=== PATIENT | female | born 1970 | race Caucasian/White ===

== ENCOUNTER 2019-02-15 14:37 | Emergency (ER) | payer OTHER ==
[2019-02-15] MEDS ORDERED: KETOROLAC 30 MG/ML 1 ML VIAL IM STA (15:04)
--- NOTE | 2019-02-15 15:09 | ED ---
General Adult HPI - General Chief complaint: Extremity Injury, Lower Stated complaint: R Foot Injury Time Seen by Provider: 02/15/19 14:53 Source: patient Mode of arrival: ambulatory Limitations: no limitations - History of Present Illness Initial comments: She is a 48-year-old female presenting to the emergency department with chief complaint of right foot pain. Patient reports incident occurred 3 days ago when she slid off a bunkbed and landed on her right foot for approximately 5 feet high. Patient reports she landed flat footed. Patient reports the last 2 days she has developed swelling and ecchymosis all around the toes and the anterior aspect of the foot. Patient reports mid foot and fifth metatarsal tenderness. Patient reports limited range of motion in her toes although she still able to slightly move them. Patient reports pain with weightbearing that is alleviated at rest. Patient reports taking [id number] analgesics minimal improvement. Patient denies any numbness or tingling. Patient denies any calf or knee pain. - Related Data Allergies Allergy/AdvReac Type Severity Reaction Status Date / Time Penicillins Allergy Rash/Hives Verified 02/15/19 14:49 Review of Systems ROS Statement: Those systems with pertinent positive or pertinent negative responses have been documented in the HPI. ROS Other: All systems not noted in ROS Statement are negative. Past Medical History Past Medical History: Thyroid Disorder History of Any Multi-Drug Resistant Organisms: None Reported Past Surgical History: Back Surgery Additional Past Surgical History / Comment(s): gastric bypass Past Psychological History: Anxiety, Depression Smoking Status: Current every day smoker Past Alcohol Use History: None Reported Past Drug Use History: None Reported General Exam Limitations: no limitations General appearance: alert, in no apparent distress Head exam: Present: atraumatic, normocephalic, normal inspection Eye exam: Present: normal appearance Pupils: Present: normal accommodation ENT exam: Present: normal exam, mucous membranes moist, normal external ear exam Neck exam: Present: normal inspection, full ROM Respiratory exam: Present: normal lung sounds bilaterally Cardiovascular Exam: Present: regular rate, normal rhythm, normal heart sounds Extremities exam: Present: full ROM (Full range of motion her right foot, limited range of motion in the toes), tenderness (Midfoot and fifth metatarsal tenderness.), normal capillary refill, other (+2 dorsalis pedis and posterior tibialis bilaterally.). Absent: normal inspection (Swelling on the right foot with ecchymosis at the MTP joints), calf tenderness (Negative Homans.) Back exam: Present: normal inspection, full ROM Neurological exam: Present: alert, oriented X3 Psychiatric exam: Present: normal affect, normal mood Skin exam: Present: warm, intact, normal color Course Vital Signs 02/15/19 14:45 Temperature 97.7 F Pulse Rate 67 Respiratory 16 Rate Blood Pressure 124/79 O2 Sat by Pulse 100 Oximetry Procedures - Orthopedic Splinting/Casting Injury #1 Side: right Lower Extremity Injury Location: long leg Lower Extremity Immobilizer: posterior splint, Levi wrap, synthetic pre-padded splint Other Orthopedic Equipment: crutches Medical Decision Making - Medical Decision Making Patient is a 48-year-old female presenting to the emergency department with a chief complaint of right foot pain. Physical examination there is only mild swelling along with ecchymosis in the right foot. X-rays indicative of a fourth and fifth metatarsal shaft fracture. Patient initially declined narcotic me dication so she was given Toradol. Patient will be discharged with Tylenol 3 starter pack. Patient advised about the possible side effects of medication. Posterior splint applied. Patient given crutches. Patient advised to follow-up with an head orthopedic team physician. Strict return parameters were thoroughly discussed with patient who is understanding and agreeable. Patient vised alternate between Tylenol and ibuprofen for pain control. Case discussed physician. Disposition Clinical Impression: Fracture of fourth metatarsal bone of right foot, Fracture of fifth metatarsal bone of right foot Disposition: HOME SELF-CARE Condition: Stable Instructions (If sedation given, give patient instructions): Foot Fracture in Adults (ED) Additional Instructions: Please follow with head orthopedic team physician. Alternate between Tylenol and ibuprofen for pain control. Please return to emergency department if symptoms worsen. Is patient prescribed a controlled substance at d/c from ED?: No Referrals: None,Stated [Primary Care Provider] - 1-2 days Jv Gillette MD [STAFF PHYSICIAN] - 1-2 days Time of Disposition: 16:26
--- NOTE | 2019-02-15 15:33 | XR ---
EXAMINATION TYPE: XR foot complete RT DATE OF EXAM: 02/15/2019 COMPARISON: NONE HISTORY: 48-year-old female with pain and bruising since injury 4 days ago TECHNIQUE: 3 views FINDINGS: Comminuted segmental, mildly displaced and mildly angulated fracture of the distal half of the fifth metatarsal shaft. Additional oblique, nondisplaced fracture of the fourth metatarsal shaft. No additional acute fracture, subluxation, dislocation seen. Associated soft tissue swelling. Mild b union formation. IMPRESSION: 1. Comminuted segmental, mildly displaced and mildly angulated fractures of the distal half of the fi fth metatarsal shaft. 2. Additional oblique, nondisplaced fracture of the fourth metatarsal shaft.
[2019-02-15] MEDS ORDERED: ACET/COD 300 MG/30 MG STARTER PACK 6 TAB BTL PO STA (16:13)
[2019-02-15 16:37] VITALS: BP 126/74; PULSE 69; RESP 18; TEMP 98
== END 2019-02-15 16:52 | disposition home or self-care (01) ==
LOC: EC 14:37
DX: S92.341A Displaced fracture of fourth metatarsal bone, right foot, initial encounter for closed fracture (principal); S92.351A Displaced fracture of fifth metatarsal bone, right foot, initial encounter for closed fracture; F17.200 Nicotine dependence, unspecified, uncomplicated; Z88.0 Allergy status to penicillin; Z98.84 Bariatric surgery status; W19.XXXA Unspecified fall, initial encounter
CPT/HCPCS: 73630; 99283; 29505; J1885